=== PATIENT | female | born 1935 | race Two or more races ===

== ENCOUNTER 2024-03-19 09:00 | Inpatient (IN) | payer MEDICARE ==
[~2024-03-19] VITALS: Ht 162.6 cm; Wt 71.0 kg
[2024-03-19 09:35] LABS: BASOPHILS % (AUTO) 0.6 % (0.0-2.0); EOSINOPHILS % (AUTO) 3.5 % (1.0-6.0); HEMATOCRIT 35.8 % (36-46); HEMOGLOBIN 12.1 g/dL (12.0-16.0); LYMPHOCYTES # (AUTO) 1.6 K/uL (1.0-4.8); LYMPHOCYTES % (AUTO) 22.6 % (22.0-44.0); MEAN CORPUSCULAR HEMOGLOBIN 31.6 pg (26.0-34.0); MEAN CORPUSCULAR HGB CONC 33.7 G/dL (31.0-37.0); MEAN CORPUSCULAR VOLUME 94 fL (80-100); MONOCYTES # (AUTO) 0.4 K/uL (0.1-1.0); MONOCYTES % (AUTO) 6.2 % (2.0-9.0); NEUTROPHILS # (AUTO) 4.7 K/uL (1.8-7.7); NEUTROPHILS % (AUTO) 67.1 % (40.0-70.0); RED BLOOD CELL COUNT(AUTO) 3.83 MIL/uL (4.00-5.20); RED CELL DISTRIBUTION WIDTH 14.2 % (11.5-14.5); WHITE BLOOD COUNT (AUTO) 7.1 K/uL (4.5-11.0)
[2024-03-19] MEDS ORDERED: SODIUM CHLORIDE 0.9% 100 ML ONE (09:38)
[2024-03-19] MEDS ORDERED: IOHEXOL 350 MG/ML 100 ML VIAL ONE (09:38)
[2024-03-19 09:39] LABS: ANION GAP 9 mmol/L (8-16); CALCIUM, TOTAL 8.7 mg/dL (8.8-10.5); CARBON DIOXIDE 25 mmol/L (22-29); CHLORIDE 105 mmol/L (98-107); CREATININE 0.82 mg/dL (0.60-1.30); GLOMERULAR FILTR. RATE CALC > 60 mL/min (>60); GLUCOSE,RANDOM 205 mg/dL (70-110); POTASSIUM 3.5 mmol/L (3.5-5.1); SODIUM SERUM 139 mmol/L (136-145); UREA NITROGEN, BLOOD 14 mg/dL (7-18)
[2024-03-19 09:43] LABS: INR 1.2 (0.9-1.1); PROTHROMBIN TIME 12.8 SEC (9.4-11.6)
[2024-03-19 09:45] LABS: ALANINE AMINOTRANSFERASE 18 U/L (12-78); ALBUMIN 2.4 g/dL (3.4-5.0); ALKALINE PHOSPHATASE 72 U/L (46-116); ASPARTATE AMINOTRANSFERASE 34 U/L (15-37); BILIRUBIN,TOTAL 1.4 mg/dL (0.1-1.0); TOTAL PROTEIN, SERUM 6.5 g/dL (6.4-8.2)
[2024-03-19 09:50] LABS: TROPONIN I-HIGH SENSITIVITY 23 ng/L (<51)
[2024-03-19 09:58] LABS: PLATELET COUNT (AUTO) 70 K/uL (150-450)
[2024-03-19] MEDS ORDERED: METF-1211 PO (10:24)
[2024-03-19] MEDS ORDERED: APIX5TAB PO (10:24)
[2024-03-19] MEDS ORDERED: METO-408 PO (10:24)
[2024-03-19] MEDS ORDERED: FURO20TA4 PO (10:24)
[2024-03-19] MEDS ORDERED: LOSA-382 PO (10:24)
[2024-03-19] MEDS ORDERED: MORPHINE SULFATE 2 MG/ML SYRINGE IVP PRN (11:00)
[2024-03-19] MEDS ORDERED: BISACODYL 10 MG RECTAL RECTAL SUPPOSITORY PR PRN (11:00)
[2024-03-19] MEDS ORDERED: ACETAMINOPHEN 325 MG TABLET PO PRN (11:00)
[2024-03-19] MEDS ORDERED: DEXTROSE 50%-WATER 25 GM/50 ML SYRINGE IVP PRN (11:00)
[2024-03-19] MEDS ORDERED: ONDANSETRON HCL 4 MG/2 ML VIAL IVP PRN (11:00)
[2024-03-19] MEDS ORDERED: LORazepam 2 MG/ML VIAL IVP PRN (11:00)
[2024-03-19] MEDS: LevETIRAcetam 500 MG in DEXTROSE 5%-WATER 100 ML IV SCH (12:02)
[2024-03-19] MEDS: SODIUM CHLORIDE 0.9% 1,000 ML IV SCH (12:03)
[2024-03-19] MEDS: LABETALOL HCL 5 MG/ML 20 ML VIAL IVP ONE (15:53)
[2024-03-19] MEDS: LORazepam 2 MG/ML VIAL IVP PRN (15:53)
[2024-03-19 16:00] VITALS: BP 124/65; PULSE 85; RESP 20; TEMP 98.6
[2024-03-19] MEDS: LABETALOL HCL 5 MG/ML 20 ML VIAL IVP PRN (18:29)
[2024-03-19] MEDS: INSULIN LISPRO 100 UNITS/ML SQ PRN (18:33)
[2024-03-19 20:00] VITALS: BP 145/70; PULSE 91; RESP 17; TEMP 99.3
[2024-03-19 20:26] LABS: GLUCOMETER DEV NAME(LOC) ICU.S6; GLUCOSE,POINT OF CARE 213 MG/DL (70-110)
[2024-03-19] MEDS: DOCUSATE SODIUM 100 MG CAPSULE PO SCH (21:00)
[2024-03-19] MEDS: CHLORHEXIDINE GLUCONATE 2% TOWELETTE [2'S/6'S] TP SCH (21:10)
[2024-03-19 22:10] LABS: GLUCOMETER DEV NAME(LOC) ICUN.5; GLUCOSE,POINT OF CARE 168 MG/DL (70-110)
[2024-03-20 00:31] VITALS: BP 135/59; PULSE 86; RESP 16; TEMP 99.4
[2024-03-20 04:11] VITALS: BP 140/65; PULSE 82; RESP 20; TEMP 99.9
[2024-03-20 06:21] LABS: GLUCOMETER DEV NAME(LOC) ICUN.5; GLUCOSE,POINT OF CARE 168 MG/DL (70-110)
[2024-03-20 08:00] VITALS: BP 138/55; PULSE 86; RESP 19; TEMP 99.4
[2024-03-20] MEDS: PANTOPRAZOLE SODIUM 40 MG/VIAL IVP SCH (09:20)
[2024-03-20 12:00] VITALS: BP 138/57; PULSE 80; PULSE 81; RESP 16; TEMP 99.4
[2024-03-20 16:00] VITALS: BP 147/76; PULSE 85; RESP 15; TEMP 100.9
[2024-03-20 18:15] LABS: GLUCOMETER DEV NAME(LOC) ICU.S6; GLUCOSE,POINT OF CARE 154 MG/DL (70-110)
[2024-03-20 18:15] LABS: GLUCOMETER DEV NAME(LOC) ICU.S6; GLUCOSE,POINT OF CARE 167 MG/DL (70-110)
[2024-03-20 20:00] VITALS: BP 152/65; PULSE 86; RESP 17; TEMP 102.4
[2024-03-20] MEDS: ACETAMINOPHEN 500 MG/ISO-OSM 50 ML IV ONE (21:57)
[2024-03-21] VITALS: BP 119/54; PULSE 76; RESP 16; TEMP 101.6
[2024-03-21 03:11] LABS: GLUCOMETER DEV NAME(LOC) ICUN.5; GLUCOSE,POINT OF CARE 145 MG/DL (70-110)
[2024-03-21 04:00] VITALS: BP 152/64; PULSE 79; RESP 19; TEMP 100.9
[2024-03-21 06:46] LABS: GLUCOMETER DEV NAME(LOC) ICU.S6; GLUCOSE,POINT OF CARE 144 MG/DL (70-110)
[2024-03-21 08:00] VITALS: BP 151/70; PULSE 84; RESP 19; TEMP 99.4
[2024-03-21 12:00] VITALS: BP 146/53; PULSE 78; RESP 18; TEMP 98.2
[2024-03-21 15:11] LABS: GLUCOMETER DEV NAME(LOC) ICU.S6; GLUCOSE,POINT OF CARE 164 MG/DL (70-110)
[2024-03-21 16:00] VITALS: BP 160/70; PULSE 85; RESP 18
== END 2024-03-21 16:05 | disposition hospice, home (50) | DRG 64 ==
LOC: EMS 09:01 → ICU 13:50
PROVIDERS: ADMIT Internal Medicine; ATTEND Internal Medicine
DX: I61.5 Nontraumatic intracerebral hemorrhage, intraventricular (principal); G93.41 Metabolic encephalopathy; G93.6 Cerebral edema; G81.91 Hemiplegia, unspecified affecting right dominant side; I10 Essential (primary) hypertension; Z66 Do not resuscitate; R29.6 Repeated falls; R13.10 Dysphagia, unspecified; D69.6 Thrombocytopenia, unspecified; E11.9 Type 2 diabetes mellitus without complications; Z79.84 Long term (current) use of oral hypoglycemic drugs; Z79.899 Other long term (current) drug therapy; Z88.8 Allergy status to other drugs, medicaments and biological substances; Z91.040 Latex allergy status; Z79.01 Long term (current) use of anticoagulants; Z51.5 Encounter for palliative care; Z86.718 Personal history of other venous thrombosis and embolism
CPT/HCPCS: 70450; 70496; 70498; 71045; 80053; 82948; 82962; 84484; 85025; 85610; 85730; 86850; 86900; 86901; 87081; 93005; 93306; 93970; 99285; C9113; J0131; J0712; J2060; J3490; J7030; J7050; J7060; Q9967; 36415-L1; 36415-TC